=== PATIENT | female | born 1950 | race Caucasian/White ===

== ENCOUNTER 2017-05-15 13:45 | Emergency (ER) | payer MEDICARE ==
[~2017-05-15] VITALS: Ht 160 cm; Wt 77.1 kg
[2017-05-15] MEDS ORDERED: HYDROCODONE/APAP 7.5MG-325MG 1 EA TAB PO PRN (14:00)
--- NOTE | 2017-05-15 15:23 | Diagnostic Imaging Report ---
PROCEDURE:HIP RIGHT 2-3 VW (+/- PELVIS) COMPARISON:None. INDICATIONS:FALL FINDINGS: Normal mineralization. No acute fracture or dislocation. Joint spaces are within normal limits. CONCLUSION: No acute fracture or dislocation of the right hip. Dictated by: Christopher Negro M.D. on 05/15/2017 at 15:32 Electronically approved by: Christopher Negro M.D. on 05/15/2017 at 15:32
--- NOTE | 2017-05-15 15:29 | Diagnostic Imaging Report ---
PROCEDURE:X-RAY RIGHT KNEE, THREE OR MORE VIEWS COMPARISON:None. INDICATIONS:FALL FINDINGS: There are no fractures, subluxations, lytic or blastic lesions. There is no evidence of a joint effusion. Lucency overlying the distal femur on lateral view is probably artifactual. CONCLUSION: No acute displaced fracture or dislocation of the right knee. Lucency overlying the distal femur, on lateral view, is probably artifactual. Dictated by: Christopher Negro M.D. on 05/15/2017 at 15:38 Electronically approved by: Christopher Negro M.D. on 05/15/2017 at 15:38
== END 2017-05-15 17:51 | disposition home or self-care (01) ==
LOC: ER 13:45
DX: S80.01XA Contusion of right knee, initial encounter (principal); M25.551 Pain in right hip; W01.0XXA Fall on same level from slipping, tripping and stumbling without subsequent striking against object, initial encounter; Y99.0 Civilian activity done for income or pay
CPT/HCPCS: 99283